=== PATIENT | male | born 1985 | race Caucasian/White ===

== ENCOUNTER 2025-03-13 10:39 | Day surgery (SDC) | payer BC ==
[2025-03-13] MEDS: Lactated Ringers 1,000 ML IV SCH (11:21)
[2025-03-13] MEDS ORDERED: propofoL 500 MG/50 ML 50 ML ONE (11:27)
[2025-03-13] MEDS ORDERED: Propofol 200 MG/20 ML SDV ONE (12:13)
[2025-03-13] MEDS ORDERED: Lactated Ringers 1,000 ML IV SCH (13:00)
== END 2025-03-13 13:05 | disposition home or self-care (01) ==
LOC: MW.SDS 10:39
PROVIDERS: ATTEND Surgery
DX: K62.5 Hemorrhage of anus and rectum (principal); E66.9 Obesity, unspecified; Z68.33 Body mass index [BMI] 33.0-33.9, adult; Z83.719 Family history of colon polyps, unspecified
CPT/HCPCS: 45378; J2003; J2704; J7120; 00811